=== PATIENT | female | born 1950 | race Caucasian/White ===

== ENCOUNTER → 2021-05-08 | Outpatient (CLI) | payer MEDICARE, BC ==
--- NOTE | 2021-05-08 12:40 | BD ---
EXAMINATION TYPE: Axial Bone Density DATE OF EXAM: 05/08/2021 COMPARISON: NONE CLINICAL HISTORY: osteoporosis Height: 5'3 Weight: 182 FRAX RISK QUESTIONS: Secondary Osteoporosis: 3. Menopause before 45: y RISK FACTORS HISTORY OF: Active: y Diet low in dairy products/other sources of calcium: y Postmenopausal woman: y MEDICATIONS: Additional Medications: blood pressure, type2 diabetes, Additional History: bladder cancer age 52, chemotherapy EXAM MEASUREMENTS: Bone mineral densitometry was performed using the Dr. TATTOFF System. Bone mineral density as measured about the Lumbar spine is: ----- L1-L4(G/cm2): 1.185 T Score Values are as follows: ----- L2: -0.4 ----- L3: 0.8 ----- L4: 0.0 ----- L1-L4: 0.0 Bone mineral density about the R hip (g/cm2): 0.877 Bone mineral density about the L hip (g/cm2): 0.840 T Score values are as follows: -----R Neck: -1.4 -----L Neck: -1.2 -----R Total: -0.3 -----L Total: -0.4 IMPRESSION: Osteopenia right femoral neck (T Score between -2.5 and -1). There is slightly increased risk of fracture and the patient may be considered for treatment. Re-Screen 2-5 years. NOTE: T-SCORE=SD OF THE YOUNG ADULT MEAN.
== END | disposition home or self-care (01) ==
LOC: RADBDWWP 09:57
PROVIDERS: ATTEND Internal Medicine Geriatric Medicine
DX: M85.851 Other specified disorders of bone density and structure, right thigh (principal)
CPT/HCPCS: 77080